=== PATIENT | male | born 1965 | race Caucasian/White ===

== ENCOUNTER 2019-04-04 12:49 | Emergency (ER) | payer OTHER, SELFPAY ==
[2019-04-04 13:09] VITALS: BP 126/75; PULSE 72; RESP 18; TEMP 37.6; O2SAT 98
--- NOTE | 2019-04-04 14:02 | ED.GENADULT ---
HPI - General Adult General Chief complaint: Upper Respiratory Infection Stated complaint: congestion fever nausea Time Seen by Provider: 04/04/19 14:02 Source: patient Mode of arrival: ambulatory Limitations: no limitations History of Present Illness HPI narrative: 53-year-old male patient presents to the [facility] with complaints of cold symptoms for the past 5 days. Patient states he has had chills, thinks he might be running a fever, having body aches, lethargy. Patient states has had some drainage to the back of throat, runny nose, stuffy nose and a slight cough. Patient states that he did get a flu shot this year. Denies any chest pain, shortness of breath, abdominal pain, nausea, vomiting or diarrhea. Related Data Home Medications Medication Instructions Recorded Confirmed No Home Medications 04/04/19 04/04/19 Allergies Allergy/AdvReac Type Severity Reaction Status Date / Time No Known Allergies Allergy Verified 04/04/19 13:36 Review of Systems Review of Systems: Narrative: CONSTITUTIONAL: Positive subjective fever, chills, body exam sweats. EYES: Denies visual changes, redness, or discharge. ENT: Positive rhinorrhea, congestion, sore throat, denies otalgia. CARDIOVASCULAR: Denies chest pain, palpitations, or edema. RESPIRATORY: Positive cough, denies dyspnea. GASTROINTESTINAL: Denies abdominal pain, nausea, vomiting, or diarrhea. GENITOURINARY: Denies dysuria or hematuria. SKIN: Denies rash or itching. MUSCULOSKELETAL: Denies back pain, joint pain, or myalgia. NEUROLOGIC: Denies headache, numbness, or weakness. PSYCHIATRIC: Denies anxiety or depression. PMFSH Comments At the time of my signature I agree with nursing past medical history, surgical, social, and family history. There is no relevant family history pertinent to the presenting complaint. Exam Narrative: Exam Narrative: GENERAL: ill-appearing, well-nourished, and in no acute distress. HEAD: Normocephalic, atraumatic. EYES: PERRLA and EOMI. ENT: Nares with erythema and edema noted bilaterally, no rhinorrhea or epistaxis. Mucous membranes moist. Posterior pharynx with no erythema, tonsillar margin, exudates or lesions present. Bilateral TMs are clear no erythema or foreign bodies in the canal. NECK: Supple. No lymphadenopathy CHEST: Clear to auscultation. No respiratory distress. HEART: Regular rate and rhythm. No murmur heard. Normal peripheral pulses. ABDOMEN: Soft, nontender, nondistended, normal active bowel sounds. EXTREMITIES: Normal range of motion. No edema. SKIN: Warm, dry, no rash. NEURO: No focal deficits. Alert and oriented x3. Course Vital Signs Vital signs: Vital Signs Temperature 37.6 C 04/04/19 13:09 Pulse Rate 72 04/04/19 13:09 Respiratory Rate 18 04/04/19 13:09 Blood Pressure 126/75 04/04/19 13:09 Pulse Oximetry 98 04/04/19 13:09 Temperature 37.6 C 04/04/19 13:09 Pulse Rate 72 04/04/19 13:09 Respiratory Rate 18 04/04/19 13:09 Blood Pressure 126/75 04/04/19 13:09 Pulse Oximetry 98 04/04/19 13:09 Vital signs reviewed. Medical Decision Making Differential Diagnosis Differential Diagnosis: Differential diagnosis: Allergic rhinitis, chronic sinusitis, tonsillitis, acute sinusitis, infectious mononucleosis, seasonal influenza, pertussis, diphtheria, meningococcal disease, viral syndrome, viral bronchitis, RSV. Notify patient that he is positive today for influenza A. Discussed with patient since he is on day 5 now for his symptoms he is outside the window to receive antivirals. Discussed with patient that the treatment would be [id number] Tylenol, Motrin, hot tea, honey for any sore throat symptoms as well as plenty of fluids and lots of rest. Discussed with him I will write him off of work for the rest of the week and he can go back on Tuesday as long as he is fever free for 24 hours on Tuesday. Discussed with patient if his symptoms worsen and he develops worsening chest pains, s
== END 2019-04-04 14:07 | disposition home or self-care (01) ==
PROVIDERS: Emergency Provider Nurse Practitioner Family
DX: J10.1 Influenza due to other identified influenza virus with other respiratory manifestations (principal)
CPT/HCPCS: 87804; 99213; G0463